=== PATIENT | male | born 1985 | race Caucasian/White ===

== ENCOUNTER 2018-07-08 16:30 | Emergency (ER) | payer OTHER ==
[2018-07-08] MEDS: KETOROLAC 30 MG INJ IM (17:25)
[2018-07-08] MEDS: DIPHTH/TET/ACEL PERTUSS (ADULT) 0.5 ML VIAL IM* (17:26)
[2018-07-08] MEDS: LIDOCAINE 2% (MDV) 20 ML INJ INJ (17:38)
== END 2018-07-08 20:29 | disposition home or self-care (01) ==
LOC: FTE 16:30
DX: S01.112A Laceration without foreign body of left eyelid and periocular area, initial encounter (principal); F17.210 Nicotine dependence, cigarettes, uncomplicated; W01.0XXA Fall on same level from slipping, tripping and stumbling without subsequent striking against object, initial encounter; Y92.9 Unspecified place or not applicable; Z23 Encounter for immunization
CPT/HCPCS: 12011; 70450; 90471; 90715; 96372; 99285-25